=== PATIENT | female | born 1960 | race Hispanic/Latino ===

== ENCOUNTER 2017-08-31 15:14 | Outpatient (CLI) | payer OTHER | END 2017-08-31 15:15 | disposition home or self-care (01) | LOC: BICRAD 15:14 | PROVIDERS: ATTEND Internal Medicine | DX: H69.83 Other specified disorders of Eustachian tube, bilateral (principal) | CPT/HCPCS: 70220 ==

== ENCOUNTER 2019-01-13 07:09 | Emergency (ER) | payer SELFPAY ==
[2019-01-13] MEDS ORDERED: Ondansetron PF 4 MG/2 ML Vial ONE (07:34)
[2019-01-13] MEDS ORDERED: Diazepam 10 MG/2 ML SYRINGE ONE (08:01)
[2019-01-13 08:12] LABS: ALT (SGPT) 15 U/L (8-55); AST (SGOT) 15 U/L (5-34); Albumin 4.1 g/dL (3.5-5.0); Alkaline Phosphatase 82 U/L (40-110); Anion Gap 12 mmol/L (10-20); BUN (Urea Nitrogen) 17 mg/dL (9.8-20.1); Bilirubin, Total 0.3 mg/dL (0.2-1.2); Calc. Creatinine Clearance 0 mL/min (70-130); Carbon Dioxide 27 mmol/L (22-29); Chloride 104 mmol/L (98-107); Estimated GFR-MDRD 71; Globulin 3.1 g/dL (2.4-3.5); Glucose 148 mg/dL (70-105); Potassium 3.9 mmol/L (3.5-5.1); Protein, Total 7.2 g/dL (6.0-8.3); Sodium 139 mmol/L (136-145)
[2019-01-13] MEDS ORDERED: Meclizine HCl 25 MG TAB ONE ×2 (08:20→08:22)
[2019-01-13] MEDS ORDERED: Cefepime 1 GM VIAL ONE (08:20)
[2019-01-13 08:45] LABS: Eosinophils 2 % (0-10); Hemoglobin 12.7 g/dL (12.0-16.0); Lymphocytes 50 % (21-51); MDiff Complete? YES; Mean Corpuscular HGB CONC 33.7 g/dL (32.0-36.0); Mean Corpuscular Hemoglobin 29.8 pg (27.0-31.0); Mean Corpuscular Volume 88.4 fL (78.0-98.0); Mean Platelet Volume 10.5 fL (7.4-10.4); Monocytes 5 % (0-10); Neutrophil 43 % (42-75); Platelet Count 159 thou/uL (130-400); RBC Distribution Width 11.4 % (11.5-14.5); Red Blood Cell (RBC) Count 4.25 mill/uL (4.20-5.40)
[2019-01-13 10:03] LABS: Bilirubin Negative (Negative); Blood, Urine Negative (Negative); Clarity Clear (Clear); Glucose, Urine (Dipstick) Normal (Negative); Leukocyte 250 Leu/uL (Negative); Nitrite Negative (Negative); Protein, Urine (Dipstick) Negative (Neg-Trace); RBC/HPF 0-3 HPF (0-3); Squamous Epithelial 0-3 HPF (0-3); Urobilinogen Normal mg/dL (Less than 2)
[2019-01-13 10:04] LABS: Bacteria/HPF Rare-Few HPF (None Seen)
== END 2019-01-13 11:53 | disposition home or self-care (01) ==
LOC: ERS 07:09
DX: H81.10 Benign paroxysmal vertigo, unspecified ear (principal); F41.9 Anxiety disorder, unspecified; Z79.899 Other long term (current) drug therapy
CPT/HCPCS: 36415; 80053; 81003; 81015; 85025; 93005; 94760; 96361; 96374; 96375; J0692; J2405; J3360; J8597